=== PATIENT | female | born 1960 | race Caucasian/White ===

== ENCOUNTER 2016-07-03 11:50 | Inpatient (IN) | payer MEDICARE, MEDICAID ==
[~2016-07-03] VITALS: Ht 162.6 cm; Wt 75.6 kg
[~2016-07-03 11:50] MED LIST: BUSP15 PO; DIVA500T35 PO; GLIM4 PO; ISOS5TAB5 PO; LISI-661 PO; METF500T4 PO; METO25 PO; OLAN5TAB2 PO
[2016-07-03] MEDS ORDERED: INFLUENZA VIRUS VACCINE QVS 2016-17 (3YR+)/PF 60 MCG/0.5 ML SYRINGE IM ONE (17:45)
[2016-07-03 18:05] VITALS: BP 161/87
[2016-07-03 20:02] VITALS: BP 144/62
[2016-07-03] MEDS: OLANZapine 5 MG TABLET PO SCH (21:00)
[2016-07-03] MEDS: ZOLPIDEM TARTRATE 10 MG TABLET PO PRN (21:06)
[2016-07-04] MEDS: MetFORMIN HCL 500 MG TABLET PO SCH ×3 (07:11→16:45)
[2016-07-04] MEDS: GLIMEPIRIDE 4 MG TABLET PO SCH (07:11)
[2016-07-04 07:26] LABS: GLUCOSE,POINT OF CARE 153 MG/DL (70-110)
[2016-07-04 08:36] VITALS: BP 167/85
[2016-07-04 08:41] LABS: BASOPHILS % (AUTO) 0.2 % (0.0-2.0); EOSINOPHILS % (AUTO) 4.1 % (1.0-6.0); HEMATOCRIT 39.8 % (36-46); HEMOGLOBIN 12.7 g/dL (12.0-16.0); LYMPHOCYTES % (AUTO) 26.6 % (22.0-44.0); MEAN CORPUSCULAR HEMOGLOBIN 28.8 pg (26.0-34.0); MEAN CORPUSCULAR HGB CONC 31.9 G/dL (31.0-37.0); MEAN CORPUSCULAR VOLUME 90 fL (80-100); MONOCYTES # (AUTO) 0.5 K/uL (0.1-1.0); MONOCYTES % (AUTO) 7.1 % (2.0-9.0); NEUTROPHILS # (AUTO) 4.6 K/uL (1.8-7.7); PLATELET COUNT (AUTO) 295 K/uL (150-450); RED CELL DISTRIBUTION WIDTH 13.8 % (11.5-14.5); WHITE BLOOD COUNT (AUTO) 7.4 K/uL (4.5-11.0)
[2016-07-04] MEDS: BusPIRone HCL 15 MG TABLET PO SCH ×3 (08:51→16:45)
[2016-07-04] MEDS: LISINOPRIL 10 MG TABLET PO SCH ×3 (08:51→10:50)
[2016-07-04] MEDS: BACITRACIN/POLYMYXIN B 15 GM OINTMENT TP SCH ×2 (08:51→17:17)
[2016-07-04] MEDS: ISOSORBIDE DINITRATE 10 MG TABLET PO SCH (09:00)
[2016-07-04] MEDS: METOPROLOL TARTRATE 25 MG TABLET PO SCH (09:00)
[2016-07-04] MEDS: OLANZapine 5 MG TABLET PO SCH ×2 (09:00→21:00)
[2016-07-04 09:01] LABS: HEMOGLOBIN A1C 6.2 % (4.5-6.2)
[2016-07-04 09:19] LABS: ALANINE AMINOTRANSFERASE 39 U/L (12-78); ALBUMIN 3.9 g/dL (3.4-5.0); ANION GAP 10 mmol/L (8-16); ASPARTATE AMINOTRANSFERASE 34 U/L (15-37); BILIRUBIN,TOTAL 0.3 mg/dL (0.1-1.0); CALCIUM, TOTAL 9.2 mg/dL (8.8-10.5); CARBON DIOXIDE 26 mmol/L (22-29); CHLORIDE 101 mmol/L (98-107); CHOL/HDL RATIO 2.6 (3.9-5.7); GLOMERULAR FILTR. RATE CALC > 60 mL/min (>60); POTASSIUM 4.4 mmol/L (3.5-5.1); SODIUM SERUM 137 mmol/L (136-145); THYROID STIMULATING HORMONE 0.43 uIU/mL (0.36-3.74); TOTAL PROTEIN, SERUM 7.3 g/dL (6.4-8.2); UREA NITROGEN, BLOOD 17 mg/dL (7-18)
[2016-07-04 14:52] VITALS: BP 160/85
[2016-07-04 16:36] VITALS: BP 151/95
[2016-07-04 18:37] LABS: GLUCOSE,POINT OF CARE 82 MG/DL (70-110)
[2016-07-04] MEDS: ZOLPIDEM TARTRATE 10 MG TABLET PO PRN (21:00)
[2016-07-05 03:23] VITALS: BP 146/88
[2016-07-05] MEDS: ACETAMINOPHEN 325 MG TABLET PO PRN (03:26)
[2016-07-05 06:12] LABS: GLUCOSE,POINT OF CARE 99 MG/DL (70-110)
[2016-07-05] MEDS: GLIMEPIRIDE 4 MG TABLET PO SCH (06:41)
[2016-07-05] MEDS: MetFORMIN HCL 500 MG TABLET PO SCH ×3 (06:41→16:39)
[2016-07-05 08:38] LABS: CHOL/HDL RATIO 2.7 (3.9-5.7); THYROID STIMULATING HORMONE 0.54 uIU/mL (0.36-3.74)
[2016-07-05 08:52] VITALS: BP 152/79
[2016-07-05] MEDS: METOPROLOL TARTRATE 25 MG TABLET PO SCH (09:00)
[2016-07-05] MEDS: OLANZapine 5 MG TABLET PO SCH ×2 (09:00→21:33)
[2016-07-05] MEDS: BACITRACIN/POLYMYXIN B 15 GM OINTMENT TP SCH ×2 (09:09→16:39)
[2016-07-05] MEDS: ISOSORBIDE DINITRATE 10 MG TABLET PO SCH (09:16)
[2016-07-05] MEDS: BusPIRone HCL 15 MG TABLET PO SCH ×3 (09:16→16:39)
[2016-07-05] MEDS: LISINOPRIL 10 MG TABLET PO SCH (09:16)
[2016-07-05 16:11] LABS: GLUCOSE,POINT OF CARE 71 MG/DL (70-110)
[2016-07-05 16:29] VITALS: BP 141/80
[2016-07-05] MEDS: ZOLPIDEM TARTRATE 10 MG TABLET PO PRN (20:53)
[2016-07-05 21:31] LABS: GLUCOSE,POINT OF CARE 108 MG/DL (70-110)
[2016-07-06] MEDS: MetFORMIN HCL 500 MG TABLET PO SCH ×3 (06:20→16:56)
[2016-07-06 06:32] LABS: GLUCOSE,POINT OF CARE 156 MG/DL (70-110)
[2016-07-06] MEDS: GLIMEPIRIDE 4 MG TABLET PO SCH (06:32)
[2016-07-06 08:30] VITALS: BP 150/87
[2016-07-06] MEDS: OLANZapine 5 MG TABLET PO SCH ×2 (09:00→21:00)
[2016-07-06] MEDS: ISOSORBIDE DINITRATE 10 MG TABLET PO SCH (09:00)
[2016-07-06] MEDS: LISINOPRIL 10 MG TABLET PO SCH (09:14)
[2016-07-06] MEDS: BACITRACIN/POLYMYXIN B 15 GM OINTMENT TP SCH ×2 (09:15→17:43)
[2016-07-06] MEDS: BusPIRone HCL 15 MG TABLET PO SCH ×3 (09:15→16:56)
[2016-07-06] MEDS: METOPROLOL TARTRATE 25 MG TABLET PO SCH (09:15)
[2016-07-06 16:15] VITALS: BP 143/102
[2016-07-06] MEDS: ACETAMINOPHEN 325 MG TABLET PO PRN (16:56)
[2016-07-06 20:41] LABS: GLUCOSE,POINT OF CARE 94 MG/DL (70-110)
[2016-07-06] MEDS ORDERED: FluPHENAZine HCL 2.5 MG/ML INJ IM ONE ×2 (21:15→21:16)
[2016-07-06] MEDS ORDERED: LORazepam 2 MG/ML VIAL IM ONE (21:15)
[2016-07-06] MEDS ORDERED: DiphenhydrAMINE HCL 50 MG/ML VIAL IM ONE (21:15)
[2016-07-06] MEDS ORDERED: DiphenhydrAMINE HCL 50 MG/ML VIAL ONE (21:16)
[2016-07-06] MEDS ORDERED: LORazepam 2 MG/ML VIAL ONE (21:16)
[2016-07-07 06:46] LABS: GLUCOSE,POINT OF CARE 100 MG/DL (70-110)
[2016-07-07] MEDS: MetFORMIN HCL 500 MG TABLET PO SCH ×3 (07:02→16:18)
[2016-07-07] MEDS: GLIMEPIRIDE 4 MG TABLET PO SCH (07:02)
[2016-07-07 08:02] VITALS: BP 146/86
[2016-07-07] MEDS: LISINOPRIL 10 MG TABLET PO SCH (09:00)
[2016-07-07] MEDS: METOPROLOL TARTRATE 25 MG TABLET PO SCH (09:00)
[2016-07-07] MEDS: OLANZapine 5 MG TABLET PO SCH ×2 (09:00→20:13)
[2016-07-07] MEDS: BusPIRone HCL 15 MG TABLET PO SCH ×3 (09:00→16:18)
[2016-07-07] MEDS: ISOSORBIDE DINITRATE 10 MG TABLET PO SCH (09:00)
[2016-07-07] MEDS: LORazepam 2 MG TABLET PO PRN ×3 (09:09→20:13)
[2016-07-07] MEDS: BACITRACIN/POLYMYXIN B 15 GM OINTMENT TP SCH ×2 (09:13→16:19)
[2016-07-07 16:20] VITALS: BP 143/73
[2016-07-07 19:12] LABS: GLUCOSE COMMENT 1 Received Meds; GLUCOSE,POINT OF CARE 102 MG/DL (70-110)
[2016-07-08 04:43] VITALS: BP 134/80
[2016-07-08 06:12] LABS: GLUCOSE,POINT OF CARE 101 MG/DL (70-110)
[2016-07-08] MEDS: GLIMEPIRIDE 4 MG TABLET PO SCH (06:20)
[2016-07-08] MEDS: MetFORMIN HCL 500 MG TABLET PO SCH ×3 (06:20→16:34)
[2016-07-08 08:39] VITALS: BP 151/85
[2016-07-08] MEDS: BusPIRone HCL 15 MG TABLET PO SCH ×3 (08:44→16:34)
[2016-07-08] MEDS: METOPROLOL TARTRATE 25 MG TABLET PO SCH (08:50)
[2016-07-08] MEDS: ISOSORBIDE DINITRATE 10 MG TABLET PO SCH (08:51)
[2016-07-08] MEDS: OLANZapine 5 MG TABLET PO SCH ×2 (08:51→20:16)
[2016-07-08] MEDS: LISINOPRIL 10 MG TABLET PO SCH (08:51)
[2016-07-08] MEDS: BACITRACIN/POLYMYXIN B 15 GM OINTMENT TP SCH ×2 (08:53→16:35)
[2016-07-08 13:45] VITALS: BP 143/87
[2016-07-08 16:21] VITALS: BP 136/88
[2016-07-08 16:37] LABS: GLUCOSE,POINT OF CARE 76 MG/DL (70-110)
[2016-07-08] MEDS: ACETAMINOPHEN 325 MG TABLET PO PRN (16:51)
[2016-07-08] MEDS: ZOLPIDEM TARTRATE 10 MG TABLET PO PRN (20:47)
[2016-07-09 02:00] VITALS: BP 148/72
[2016-07-09] MEDS: ACETAMINOPHEN 325 MG TABLET PO PRN (02:04)
[2016-07-09] MEDS ORDERED: FluPHENAZine HCL 2.5 MG/ML INJ IM ONE ×2 (02:15→05:45)
[2016-07-09] MEDS ORDERED: DiphenhydrAMINE HCL 50 MG/ML VIAL IM ONE (02:15)
[2016-07-09] MEDS ORDERED: LORazepam 2 MG/ML VIAL IM ONE ×2 (02:15→05:45)
[2016-07-09 06:11] LABS: GLUCOSE,POINT OF CARE 92 MG/DL (70-110)
[2016-07-09] MEDS: MetFORMIN HCL 500 MG TABLET PO SCH ×3 (06:55→17:00)
[2016-07-09] MEDS: GLIMEPIRIDE 4 MG TABLET PO SCH (06:55)
[2016-07-09] MEDS: LISINOPRIL 10 MG TABLET PO SCH (09:21)
[2016-07-09] MEDS: BusPIRone HCL 15 MG TABLET PO SCH ×3 (09:21→16:17)
[2016-07-09] MEDS: ISOSORBIDE DINITRATE 10 MG TABLET PO SCH (09:21)
[2016-07-09] MEDS: BACITRACIN/POLYMYXIN B 15 GM OINTMENT TP SCH ×2 (09:21→16:18)
[2016-07-09] MEDS: OLANZapine 5 MG TABLET PO SCH ×2 (09:21→21:27)
[2016-07-09] MEDS: METOPROLOL TARTRATE 25 MG TABLET PO SCH (09:22)
[2016-07-09 16:06] VITALS: BP 126/79
[2016-07-09 16:22] LABS: GLUCOSE COMMENT 1 Doctor Notified; GLUCOSE,POINT OF CARE 67 MG/DL (70-110)
[2016-07-09 16:46] LABS: GLUCOSE COMMENT 1 Received Meds; GLUCOSE,POINT OF CARE 96 MG/DL (70-110)
[2016-07-09] MEDS: ZOLPIDEM TARTRATE 10 MG TABLET PO PRN (21:27)
[2016-07-10 02:15] VITALS: BP 145/76
[2016-07-10] MEDS: ACETAMINOPHEN 325 MG TABLET PO PRN ×2 (02:17→16:14)
[2016-07-10] MEDS: MetFORMIN HCL 500 MG TABLET PO SCH ×3 (06:40→16:13)
[2016-07-10] MEDS: GLIMEPIRIDE 4 MG TABLET PO SCH (06:40)
[2016-07-10 08:29] VITALS: BP 158/86
[2016-07-10] MEDS: LISINOPRIL 10 MG TABLET PO SCH (08:58)
[2016-07-10] MEDS: BusPIRone HCL 15 MG TABLET PO SCH ×3 (08:58→16:13)
[2016-07-10] MEDS: ISOSORBIDE DINITRATE 10 MG TABLET PO SCH (08:58)
[2016-07-10] MEDS: METOPROLOL TARTRATE 25 MG TABLET PO SCH (08:59)
[2016-07-10] MEDS: BACITRACIN/POLYMYXIN B 15 GM OINTMENT TP SCH ×2 (08:59→16:14)
[2016-07-10] MEDS: OLANZapine 5 MG TABLET PO SCH ×2 (08:59→20:13)
[2016-07-10] MEDS ORDERED: HALOPERIDOL LACTATE 5 MG/ML VIAL IM PRN (11:30)
[2016-07-10 16:17] VITALS: BP 155/76
[2016-07-11 00:11] VITALS: BP 149/89
[2016-07-11] MEDS: ACETAMINOPHEN 325 MG TABLET PO PRN (00:15)
[2016-07-11] MEDS: GLIMEPIRIDE 4 MG TABLET PO SCH (06:37)
[2016-07-11] MEDS: MetFORMIN HCL 500 MG TABLET PO SCH ×3 (06:37→16:46)
[2016-07-11 08:00] VITALS: BP 156/80
[2016-07-11] MEDS: METOPROLOL TARTRATE 25 MG TABLET PO SCH (09:00)
[2016-07-11] MEDS: OLANZapine 5 MG TABLET PO SCH ×2 (09:05→21:00)
[2016-07-11] MEDS: LISINOPRIL 10 MG TABLET PO SCH (09:05)
[2016-07-11] MEDS: BusPIRone HCL 15 MG TABLET PO SCH ×3 (09:05→16:46)
[2016-07-11] MEDS: BACITRACIN/POLYMYXIN B 15 GM OINTMENT TP SCH ×2 (09:06→17:18)
[2016-07-11] MEDS: ISOSORBIDE DINITRATE 10 MG TABLET PO SCH (09:10)
[2016-07-11] MEDS: LORazepam 2 MG TABLET PO PRN (13:47)
[2016-07-11 16:05] VITALS: BP 141/74
[2016-07-11 16:28] LABS: GLUCOSE,POINT OF CARE 90 MG/DL (70-110)
[2016-07-11] MEDS: ZOLPIDEM TARTRATE 10 MG TABLET PO PRN (21:00)
[2016-07-12] MEDS ORDERED: LORazepam 2 MG/ML VIAL ONE (03:39)
[2016-07-12] MEDS ORDERED: DiphenhydrAMINE HCL 50 MG/ML VIAL IM ONE (03:45)
[2016-07-12] MEDS ORDERED: LORazepam 2 MG/ML VIAL IM ONE (03:45)
[2016-07-12] MEDS: GLIMEPIRIDE 4 MG TABLET PO SCH (06:52)
[2016-07-12] MEDS: MetFORMIN HCL 500 MG TABLET PO SCH ×3 (06:52→17:07)
[2016-07-12 08:08] VITALS: BP 110/67
[2016-07-12] MEDS: METOPROLOL TARTRATE 25 MG TABLET PO SCH (09:00)
[2016-07-12] MEDS: BACITRACIN/POLYMYXIN B 15 GM OINTMENT TP SCH ×2 (09:31→17:07)
[2016-07-12] MEDS: LISINOPRIL 10 MG TABLET PO SCH (09:32)
[2016-07-12] MEDS: ISOSORBIDE DINITRATE 10 MG TABLET PO SCH (09:32)
[2016-07-12] MEDS: OLANZapine 5 MG TABLET PO SCH (09:32)
[2016-07-12] MEDS: BusPIRone HCL 15 MG TABLET PO SCH ×3 (09:32→17:07)
[2016-07-12 11:00] VITALS: BP 97/63
[2016-07-12 13:00] VITALS: BP 128/69
[2016-07-12] MEDS: MAG HYDROX/AL HYDROX/SIMETH 30 ML SUSP UDCUP PO PRN (15:53)
[2016-07-12] MEDS: LORazepam 2 MG TABLET PO PRN (15:57)
[2016-07-12 16:02] LABS: GLUCOSE,POINT OF CARE 115 MG/DL (70-110)
[2016-07-12] MEDS: OLANZapine 10 MG TABLET PO SCH (20:08)
[2016-07-12] MEDS: ZOLPIDEM TARTRATE 10 MG TABLET PO PRN (21:01)
[2016-07-13] MEDS: ACETAMINOPHEN 325 MG TABLET PO PRN ×2 (02:51→15:38)
[2016-07-13 02:54] VITALS: BP 119/78
[2016-07-13] MEDS: MetFORMIN HCL 500 MG TABLET PO SCH ×3 (06:41→19:01)
[2016-07-13] MEDS: GLIMEPIRIDE 4 MG TABLET PO SCH (06:42)
[2016-07-13 08:33] VITALS: BP 143/71
[2016-07-13] MEDS ORDERED: OLANZapine 5 MG TABLET PO SCH (09:00)
[2016-07-13] MEDS: ISOSORBIDE DINITRATE 10 MG TABLET PO SCH (09:14)
[2016-07-13] MEDS: BusPIRone HCL 15 MG TABLET PO SCH ×3 (09:14→19:01)
[2016-07-13] MEDS: BACITRACIN/POLYMYXIN B 15 GM OINTMENT TP SCH ×2 (09:15→19:01)
[2016-07-13] MEDS: METOPROLOL TARTRATE 25 MG TABLET PO SCH (10:03)
[2016-07-13] MEDS: LISINOPRIL 10 MG TABLET PO SCH (10:03)
[2016-07-13 15:09] VITALS: BP 133/73
[2016-07-13 15:38] VITALS: BP 135/75
[2016-07-13 16:07] VITALS: BP 132/72
[2016-07-13] MEDS ORDERED: ACET-2247 PO (17:09)
[2016-07-13] MEDS ORDERED: ISOS10TA16 PO (17:13)
[2016-07-13] MEDS ORDERED: DIVA250T25 PO (17:13)
[2016-07-13 19:20] VITALS: BP 140/92
[2016-07-13] MEDS: OLANZapine 10 MG TABLET PO SCH (20:13)
[2016-07-13] MEDS: ZOLPIDEM TARTRATE 10 MG TABLET PO PRN (21:01)
[2016-07-14 00:45] VITALS: BP 139/80
[2016-07-14] MEDS: ACETAMINOPHEN 325 MG TABLET PO PRN (00:48)
[2016-07-14] MEDS: MAG HYDROX/AL HYDROX/SIMETH 30 ML SUSP UDCUP PO PRN (02:03)
[2016-07-14 03:36] VITALS: BP 143/82
[2016-07-14] MEDS: MetFORMIN HCL 500 MG TABLET PO SCH ×3 (06:42→17:02)
[2016-07-14] MEDS: GLIMEPIRIDE 4 MG TABLET PO SCH (06:42)
[2016-07-14] MEDS: METOPROLOL TARTRATE 25 MG TABLET PO SCH (09:48)
[2016-07-14] MEDS: LISINOPRIL 10 MG TABLET PO SCH (09:48)
[2016-07-14] MEDS: OLANZapine 10 MG TABLET PO SCH ×2 (09:48→20:22)
[2016-07-14] MEDS: BusPIRone HCL 15 MG TABLET PO SCH ×3 (09:48→17:02)
[2016-07-14] MEDS: ISOSORBIDE DINITRATE 10 MG TABLET PO SCH (09:48)
[2016-07-14] MEDS: BACITRACIN/POLYMYXIN B 15 GM OINTMENT TP SCH ×2 (09:50→17:03)
[2016-07-14 12:16] VITALS: BP 161/75
[2016-07-14 16:07] VITALS: BP 136/69
[2016-07-14 17:36] LABS: GLUCOSE COMMENT 1 Received Meds; GLUCOSE,POINT OF CARE 92 MG/DL (70-110)
[2016-07-14] MEDS: ZOLPIDEM TARTRATE 10 MG TABLET PO PRN (20:22)
[2016-07-15 02:57] VITALS: BP 138/85
[2016-07-15] MEDS: ACETAMINOPHEN 325 MG TABLET PO PRN ×2 (03:06→16:53)
[2016-07-15] MEDS: MetFORMIN HCL 500 MG TABLET PO SCH ×3 (06:43→16:45)
[2016-07-15] MEDS: GLIMEPIRIDE 4 MG TABLET PO SCH (06:43)
[2016-07-15] MEDS: LISINOPRIL 10 MG TABLET PO SCH (08:04)
[2016-07-15] MEDS: METOPROLOL TARTRATE 25 MG TABLET PO SCH (08:04)
[2016-07-15] MEDS: BusPIRone HCL 15 MG TABLET PO SCH ×3 (08:04→16:13)
[2016-07-15] MEDS: ISOSORBIDE DINITRATE 10 MG TABLET PO SCH (08:04)
[2016-07-15] MEDS: OLANZapine 10 MG TABLET PO SCH ×2 (08:04→21:17)
[2016-07-15] MEDS: BACITRACIN/POLYMYXIN B 15 GM OINTMENT TP SCH ×2 (08:04→16:45)
[2016-07-15 08:13] VITALS: BP 141/88
[2016-07-15 16:06] VITALS: BP 131/60
[2016-07-15] MEDS: LORazepam 2 MG TABLET PO PRN (16:13)
[2016-07-15] MEDS: ZOLPIDEM TARTRATE 10 MG TABLET PO PRN (21:18)
[2016-07-16] MEDS: ACETAMINOPHEN 325 MG TABLET PO PRN (02:42)
[2016-07-16 02:43] VITALS: BP 109/72
[2016-07-16] MEDS: GLIMEPIRIDE 4 MG TABLET PO SCH (06:49)
[2016-07-16] MEDS: MetFORMIN HCL 500 MG TABLET PO SCH ×3 (06:49→16:58)
[2016-07-16] MEDS: BusPIRone HCL 15 MG TABLET PO SCH ×3 (08:05→16:12)
[2016-07-16] MEDS: ISOSORBIDE DINITRATE 10 MG TABLET PO SCH (08:05)
[2016-07-16] MEDS: OLANZapine 10 MG TABLET PO SCH ×2 (08:05→20:17)
[2016-07-16] MEDS: LISINOPRIL 10 MG TABLET PO SCH (08:05)
[2016-07-16] MEDS: METOPROLOL TARTRATE 25 MG TABLET PO SCH (08:05)
[2016-07-16] MEDS: BACITRACIN/POLYMYXIN B 15 GM OINTMENT TP SCH ×2 (08:10→16:28)
[2016-07-16 08:32] VITALS: BP 124/66
[2016-07-16 16:00] VITALS: BP 126/86
[2016-07-16] MEDS: ZOLPIDEM TARTRATE 10 MG TABLET PO PRN (21:33)
[2016-07-17] MEDS: MetFORMIN HCL 500 MG TABLET PO SCH ×3 (06:39→16:14)
[2016-07-17] MEDS: GLIMEPIRIDE 4 MG TABLET PO SCH (06:39)
[2016-07-17 08:20] VITALS: BP 139/78
[2016-07-17] MEDS: LISINOPRIL 10 MG TABLET PO SCH (09:04)
[2016-07-17] MEDS: METOPROLOL TARTRATE 25 MG TABLET PO SCH (09:04)
[2016-07-17] MEDS: OLANZapine 10 MG TABLET PO SCH (09:05)
[2016-07-17] MEDS: ISOSORBIDE DINITRATE 10 MG TABLET PO SCH (09:05)
[2016-07-17] MEDS: BusPIRone HCL 15 MG TABLET PO SCH ×3 (09:05→16:06)
[2016-07-17] MEDS: BACITRACIN/POLYMYXIN B 15 GM OINTMENT TP SCH ×2 (09:10→16:14)
[2016-07-17 10:50] VITALS: BP 128/76
[2016-07-17] MEDS: ACETAMINOPHEN 325 MG TABLET PO PRN (10:56)
[2016-07-17 11:50] VITALS: BP 124/70
[2016-07-17] MEDS ORDERED: OLAN10TA6 PO (15:20)
[2016-07-17 16:00] VITALS: BP 135/75
[2016-07-17] MEDS: LORazepam 2 MG TABLET PO PRN (16:06)
[2016-07-17] MEDS ORDERED: OLANZapine 10 MG RAPDIS TABLET PO SCH (21:00)
[2016-07-18 06:31] VITALS: BP 108/80
[2016-07-18] MEDS: GLIMEPIRIDE 4 MG TABLET PO SCH (06:57)
[2016-07-18] MEDS: MetFORMIN HCL 500 MG TABLET PO SCH (06:57)
== END 2016-07-18 07:54 | disposition home or self-care (01) | DRG 885 ==
LOC: B3A 16:51 → EDSTATUS 17:13
DX: F20.0 Paranoid schizophrenia (principal); F25.1 Schizoaffective disorder, depressive type; E11.9 Type 2 diabetes mellitus without complications; I10 Essential (primary) hypertension; Q24.9 Congenital malformation of heart, unspecified; F41.9 Anxiety disorder, unspecified; F17.200 Nicotine dependence, unspecified, uncomplicated; F12.10 Cannabis abuse, uncomplicated; Z28.21 Immunization not carried out because of patient refusal; Z59.0 Homelessness; Z88.8 Allergy status to other drugs, medicaments and biological substances; Z98.890 Other specified postprocedural states; Z71.6 Tobacco abuse counseling; Z71.51 Drug abuse counseling and surveillance of drug abuser; Z91.5 Personal history of self-harm
CPT/HCPCS: 73503; 82962; 83036; 84439; 84443; 87081; 90471; A0429; J1200; J2060; J3230; J3490

== ENCOUNTER 2016-07-13 16:50 | Emergency (ER) | payer MEDICARE, OTHER ==
[~2016-07-13] VITALS: Ht 162.6 cm; Wt 72.5 kg
[2016-07-13 17:07] LABS: GLUCOSE,POINT OF CARE 85 MG/DL (70-110)
[2016-07-13] MEDS ORDERED: ACET-2247 PO (17:09)
[2016-07-13] MEDS ORDERED: DIVA250T25 PO (17:13)
[2016-07-13] MEDS ORDERED: ISOS10TA16 PO (17:13)
[2016-07-13 17:22] VITALS: BP 128/43
[2016-07-13] MEDS ORDERED: ACETAMINOPHEN 500 MG TABLET PO ONE (17:45)
== END 2016-07-13 19:01 | disposition home or self-care (01) ==
LOC: EMS 16:53
DX: S80.02XA Contusion of left knee, initial encounter (principal); F41.9 Anxiety disorder, unspecified; M19.90 Unspecified osteoarthritis, unspecified site; F31.9 Bipolar disorder, unspecified; F12.10 Cannabis abuse, uncomplicated; E11.9 Type 2 diabetes mellitus without complications; F20.9 Schizophrenia, unspecified; Z88.1 Allergy status to other antibiotic agents; Z88.6 Allergy status to analgesic agent; Z88.8 Allergy status to other drugs, medicaments and biological substances; W01.0XXA Fall on same level from slipping, tripping and stumbling without subsequent striking against object, initial encounter; Y93.89 Activity, other specified; Y92.9 Unspecified place or not applicable; Y99.9 Unspecified external cause status
CPT/HCPCS: 82962; 99283